=== PATIENT | female | born 1985 | race Hispanic/Latino ===

== ENCOUNTER 2019-05-30 20:53 | Emergency (ER) | payer SELFPAY ==
[2019-05-30 21:56] VITALS: BP 128/81
== END 2019-05-30 23:45 | disposition left against medical advice (07) ==
LOC: ED 20:53
DX: T65.91XA Toxic effect of unspecified substance, accidental (unintentional), initial encounter (principal); Z53.21 Procedure and treatment not carried out due to patient leaving prior to being seen by health care provider